=== PATIENT | female | born 1950 | race Caucasian/White ===

== ENCOUNTER → 2016-09-15 | Outpatient (CLI) | payer MEDICARE, OTHER | LOC: GMAH 12:43 | PROVIDERS: ATTEND Family Medicine | DX: N39.0 Urinary tract infection, site not specified (principal) ==

== ENCOUNTER 2016-10-11 05:52 | Day surgery (SDC) | payer MEDICARE, OTHER ==
[2016-10-11] MEDS ORDERED: LACTATED RINGERS 1,000 ML ONE (06:07)
--- NOTE | 2016-10-11 09:18 | OP ---
DATE OF PROCEDURE: date PREOPERATIVE DIAGNOSIS: 1. History of colonic polyps, last colonoscopy in 2011. POSTOPERATIVE DIAGNOSIS: 1. Small transverse colon polyp, status post snare polypectomy. 2. Large internal hemorrhoids. PROCEDURE: 1. Colonoscopy with polypectomy. SURGEON: David Salcedo MD. SEDATION: Monitored anesthesia care. ESTIMATED BLOOD LOSS: Less than 5 mL. PROCEDURE: Informed consent was obtained prior to sedation. The preprocedure cardiopulmonary assessment was satisfactory. The patient was brought to the Endoscopy Suite and placed in the left lateral decubitus position. She was then sedated by the anesthesia team. The tip of the Olympus colonoscope was inserted into the rectum and advanced under direct visualization to the terminal ileum. The cecum was identified by the presence of the appendiceal orifice and ileocecal valve. Upon reaching the terminal ileum, the endoscope was slowly withdrawn from the colon with careful attention to the lining of the colon in order to locate small polyps or flat lesions. The preparation of the colon was good. In the transverse colon, there was a small, roughly 5 mm, sessile polyp. This was resected completely and retrieved with a cold snare. The endoscope was advanced into the rectum where a retroflexed view showed large , non-bleeding internal hemorrhoids. The endoscope was then withdrawn from the patient and the procedure terminated. RECOMMENDATION: 1. Discharge the patient home with escort. 2. Followup pathology results. 3. Repeat colonoscopy in five years for polyp surveillance. 4. Resume home medications. 5. Resume regular diet. 6. Return to GI office as needed. #[id number] [facility]
[2016-10-11] MEDS ORDERED: [UNRECOGNIZED DRUG - OTHER] PR ONE (11:00)
[2016-10-11] MEDS ORDERED: LIDOCAINE 1% 10 ML VIAL INJ ONE (11:00)
[2016-10-11] MEDS ORDERED: PROPOFOL 200 MG/20 ML VIAL IV ONE (11:00)
[2016-10-11 13:05] VITALS: O2SAT 96
[2016-10-11 13:10] VITALS: BP 109/73; TEMP 97.9
== END 2016-10-11 08:50 | disposition home or self-care (01) ==
LOC: AMB 05:52
PROVIDERS: ATTEND Internal Medicine Gastroenterology
DX: Z12.11 Encounter for screening for malignant neoplasm of colon (principal); D12.3 Benign neoplasm of transverse colon; K64.8 Other hemorrhoids; Z86.010 Personal history of colon polyps; Z87.891 Personal history of nicotine dependence
CPT/HCPCS: 00810; 45385; 88305; J3490; J7120

== ENCOUNTER → 2017-01-16 | Outpatient (CLI) | payer MEDICARE, OTHER | END | disposition home or self-care (01) | LOC: GMA 16:52 | PROVIDERS: ATTEND Nurse Practitioner Family | DX: N39.0 Urinary tract infection, site not specified (principal) ==

== ENCOUNTER → 2017-03-28 | Outpatient (CLI) | payer MEDICARE, OTHER | END | disposition home or self-care (01) | LOC: GMAH 10:02 | DX: N39.0 Urinary tract infection, site not specified (principal); R53.82 Chronic fatigue, unspecified; E55.9 Vitamin D deficiency, unspecified ==

== ENCOUNTER → 2017-09-07 | Outpatient (CLI) | payer MEDICARE, OTHER | END | disposition home or self-care (01) | LOC: GMAH 12:36 | PROVIDERS: ATTEND Family Medicine | DX: N39.0 Urinary tract infection, site not specified (principal) ==

== ENCOUNTER → 2017-10-29 | Outpatient (CLI) | payer MEDICARE, OTHER | LOC: GMAJS 10:46 | PROVIDERS: ATTEND Physician Assistant | DX: N39.0 Urinary tract infection, site not specified (principal) ==

== ENCOUNTER → 2017-12-13 | Outpatient (CLI) | payer MEDICARE, OTHER | LOC: GMAH 10:40 | PROVIDERS: ATTEND Family Medicine | DX: R21 Rash and other nonspecific skin eruption (principal) ==

== ENCOUNTER → 2017-12-20 | Outpatient (CLI) | payer MEDICARE, OTHER | LOC: LAB.O 10:58 | PROVIDERS: ATTEND Family Medicine | DX: R79.9 Abnormal finding of blood chemistry, unspecified (principal); R53.82 Chronic fatigue, unspecified; R21 Rash and other nonspecific skin eruption; M35.00 Sjogren syndrome, unspecified ==

== ENCOUNTER → 2018-03-26 | Outpatient (CLI) | payer MEDICARE, OTHER | LOC: GMAH 10:45 | PROVIDERS: ATTEND Family Medicine | DX: R53.82 Chronic fatigue, unspecified (principal); R79.9 Abnormal finding of blood chemistry, unspecified; R21 Rash and other nonspecific skin eruption; M35.00 Sjogren syndrome, unspecified ==

== ENCOUNTER → 2019-01-28 | Outpatient (CLI) | payer MEDICARE, OTHER ==
--- NOTE | 2019-01-28 17:15 | US ---
EXAM DESCRIPTION: Venous,Upper Extremity RT: ULTRASOUND. CLINICAL HISTORY: PAIN IN UPPER RIGHT ARM COMPARISON: None Available. TECHNIQUE: Two -dimensional and doppler sonographic evaluation of the deep venous system of the right upper extremity. FINDINGS: Doppler evaluation shows normal color flow and normal phasicity and augmentation of the right subclavian, jugular, axillary, basilic, cephalic, brachial, radial vein and ulnar veins. The right upper extremity deep veins showed normal occlusion with transducer pressure. Two-dimensional survey showed no echogenic thrombus within these veins. IMPRESSION: Duplex ultrasound evaluation of the right upper extremity deep venous system showing no deep venous thrombosis . No distinct cyst or dominant solid mass abutting these vessels. Electronically signed by: Nhan Jimenez MD 01/28/2019 5:13 PM CDT
== END ==
LOC: US 08:00
PROVIDERS: ATTEND Family Medicine
DX: M79.621 Pain in right upper arm (principal)

== ENCOUNTER → 2019-03-06 | Outpatient (CLI) | payer MEDICARE, OTHER ==
--- NOTE | 2019-03-10 08:08 | US ---
EXAM DESCRIPTION: Breast,Right: Ultrasound CLINICAL HISTORY: 68 yearsFemaleHX BREAST CANCER . Palpable region near the breast cancer scar. Breast cancer right 2015. Lumpectomy and radiation. No remote family history of breast cancer. Childbirth. Postmenopausal Lifetime risk of developing breast cancer (Tyrer-Cuzick model)(%): Not calculated due to personal history of breast cancer. COMPARISON: Mammograms performed since breast cancer at another imaging facility not available for comparison. TECHNIQUE: Transcutaneous scanning of the right breast utilizing -scale modes. Scanning performed by the doctor of radiology and Dr. Jimenez. FINDINGS: Ultrasound: Scanning in the region of the scar from previous breast cancer treatment near the 8:00 position, 8 cm from the nipple. Heterogeneous fatty and fibroglandular tissues are seen. No dominant solid mass or distinct cyst. No parenchymal edema or large calcifications. IMPRESSION: BI-RADS CATEGORY: 0 - INCOMPLETE- Need additional imaging evaluation. FOLLOW-UP: Recall for additional imaging: Diagnostic digital right breast mammography.. Written communication explaining the IMPRESSION and follow-up, will be mailed to the patient and referring health care provider. The FINDINGS and the FOLLOW-UP plan were reviewed in person with the patient after the examination. Electronically signed by: Nhan Jimenez MD 03/10/2019 8:06 AM CDT
== END ==
LOC: MAMMO 09:47
PROVIDERS: ATTEND Physician Assistant
DX: N63.10 Unspecified lump in the right breast, unspecified quadrant (principal)

== ENCOUNTER → 2019-06-25 | Outpatient (CLI) | payer MEDICARE, OTHER | LOC: GMA MATASK 11:38 | PROVIDERS: ATTEND Family Medicine | DX: R03.0 Elevated blood-pressure reading, without diagnosis of hypertension (principal); R79.9 Abnormal finding of blood chemistry, unspecified; Z79.899 Other long term (current) drug therapy ==

== ENCOUNTER → 2019-08-27 | Outpatient (CLI) | payer MEDICARE, OTHER ==
--- NOTE | 2019-08-27 09:54 | CT ---
EXAM DESCRIPTION: CTA Chest CLINICAL HISTORY: 69 years Female, PE COMPARISON: CT chest dated 11/22/2015. TECHNIQUE: Contiguous thin section axial images through the chest were obtained after the administration of intravenous contrast. MIPS, Sagittal and coronal reconstructions were reviewed. FINDINGS: Visualized thyroid gland appears normal. Enlarged left supraclavicular lymph node measuring up to 2.6 cm are noted. Multiple mediastinal lymph nodes measuring up to 2.3 cm are also noted. No abnormally enlarged bilateral hilar or axillary lymphadenopathy.. Trachea is midline and the central tracheobronchial tree is patent. Emphysema. Patchy airspace opacities in the right upper lobe could represent pneumonia and/or atelectasis. No evidence of pleural effusions. The heart is normal in size with no pericardial effusion. The visualized aorta is nonaneurysmal with moderate atherosclerosis. The superior vena cava is normal in size and caliber.No significant coronary artery atherosclerosis. No central or major vessel pulmonary embolus. Thickening of the distal esophagus could be secondary to reflux. A simple cyst is noted in the left hepatic lobe. A simple cyst is also identified in the right kidney. The visualized upper abdomen otherwise appears normal. Mild degenerative changes are identified throughout the visualized spine. IMPRESSION: 1. No central or major vessel pulmonary embolus. 2. Multiple enlarged mediastinal and left supraclavicular lymph nodes are identified the largest measuring 2.6 cm. 3. Patchy airspace opacities in the right upper lobe could represent atelectasis and/or pneumonia. This exam was performed according to our departmental dose-optimization program, which includes automated exposure control, adjustment of the mA and/or kV according to patient size and/or use of iterative reconstruction technique. Electronically signed by: Kesha Boyer MD 08/27/2019 9:53 AM [employer] T[employer] TECHNICIAN
--- NOTE | 2019-08-28 12:26 | US ---
EXAM DESCRIPTION: Venous,Upper Extremity RT: ULTRASOUND. CLINICAL HISTORY: RULE OUT DVT COMPARISON: None Available. TECHNIQUE: Two -dimensional and doppler sonographic evaluation of the deep venous system of the right upper extremity. FINDINGS: Doppler evaluation shows normal color flow and normal phasicity and augmentation of the right subclavian, jugular, axillary, basilic, brachial, radial vein and ulnar vein. Right cephalic vein was not seen. The right upper extremity deep veins showed normal occlusion with transducer pressure. Two-dimensional survey showed no echogenic thrombus within these veins. IMPRESSION: Duplex ultrasound evaluation of the right upper extremity deep venous system showing no thrombosis. Right cephalic vein was not seen . Electronically signed by: Nhan Jimenez MD 08/28/2019 12:25 PM [employer]
== END ==
LOC: CT 08:13
PROVIDERS: ATTEND Nurse Practitioner Family
DX: R22.31 Localized swelling, mass and lump, right upper limb (principal); R59.9 Enlarged lymph nodes, unspecified; R91.8 Other nonspecific abnormal finding of lung field

== ENCOUNTER 2019-09-12 05:38 | Day surgery (SDC) | payer MEDICARE, OTHER ==
[2019-09-12] MEDS ORDERED: BUPIVACAINE 0.5% W/EPI 30 ML VIAL INJ ONE ×2 (07:18→10:58)
[2019-09-12] MEDS ORDERED: LACTATED RINGERS 1,000 ML ONE (08:44)
[2019-09-12] MEDS ORDERED: LIDOCAINE 1% 10 ML VIAL INJ ONE (10:00)
[2019-09-12] MEDS ORDERED: PROPOFOL 200 MG/20 ML VIAL IV ONE (10:00)
[2019-09-12] MEDS ORDERED: SODIUM CHLORIDE 0.9% 50 ML VIAL INJ ONE (10:00)
[2019-09-12] MEDS ORDERED: MIDAZOLAM INJ 2 MG/2 ML VIAL ONE (10:52)
[2019-09-12] MEDS ORDERED: KETAMINE HCL 100 MG/ML VIAL ONE (10:52)
[2019-09-12] MEDS ORDERED: DEXMEDETOMIDINE HCL 200 MCG/2 ML INJ IV ONE (11:11)
[2019-09-12] MEDS ORDERED: fentaNYL CITRATE INJ 50 MCG/ML AMP ONE (11:21)
[2019-09-18 02:55] VITALS: BP 131/65; TEMP 97.1; O2SAT 96
--- NOTE | 2019-10-08 14:52 | OP ---
DATE OF PROCEDURE: 09/12/19 PREOPERATIVE DIAGNOSIS: 1. Supraclavicular adenopathy. POSTOPERATIVE DIAGNOSIS: 1. Supraclavicular adenopathy. PROCEDURE: 1. Excision of deep supraclavicular lymph nodes, right side times 2. SURGEON: Tripp Renteria MD. ANESTHESIA: General and local. FINDINGS: Preoperative evaluation of the CAT scan showed the left supraclavicular node was quite deep, actually around the aortic arch and could not be palpated in the supraclavicular area. There was a suggestion of a node in the lateral cervical spine there, but on the right side, I could palpate nodes, so that is where we decided to go. COMPLICATIONS: None. SPECIMEN: Supraclavicular node. INDICATION: As stated. PROCEDURE: General anesthesia was induced. She was prepped and draped in sterile fashion. A transverse incision was made over the supraclavicular fossa. Subcutaneous tissues were taken down. The nodes were not as obvious as initially felt, but upon a deeper dissection, no evidence of significant neurovascular structures were encountered. Two small nodes were palpated, very hard and irregular. These were excised completely. There was no evidence of hepatic chain and no significant bleeding. The wound was then closed in two layers. Dressing was applied. She was awakened and taken to Recovery to be discharged. [id number]
== END 2019-09-12 12:40 | disposition home or self-care (01) ==
LOC: AMB 05:38
PROVIDERS: ATTEND Surgery
DX: C96.9 Malignant neoplasm of lymphoid, hematopoietic and related tissue, unspecified (principal); K21.9 Gastro-esophageal reflux disease without esophagitis; Z85.3 Personal history of malignant neoplasm of breast; Z88.2 Allergy status to sulfonamides; Z79.899 Other long term (current) drug therapy
CPT/HCPCS: 00320; 38500; 88305; 88321; 88341; 88342; A4216; J2250; J3010; J3490; J7120

== ENCOUNTER 2019-09-26 06:00 | Day surgery (SDC) | payer MEDICARE, OTHER ==
[2019-09-26] MEDS ORDERED: LIDOCAINE 1% 10 ML VIAL INJ ONE (07:00)
[2019-09-26] MEDS ORDERED: PROPOFOL 200 MG/20 ML VIAL IV ONE (07:00)
[2019-09-26] MEDS ORDERED: ceFAZolin SODIUM 1 GM VIAL ONE (07:00)
[2019-09-26] MEDS ORDERED: LACTATED RINGERS 1,000 ML ONE (07:19)
[2019-09-26] MEDS ORDERED: BUPIVACAINE 0.5% W/EPI 30 ML VIAL INJ ONE (08:16)
[2019-09-26] MEDS ORDERED: HEPARIN SODIUM 100 U/ML 5 ML SYG IV ONE (08:17)
[2019-09-26] MEDS ORDERED: SODIUM CHLORIDE 0.9% 50 ML VIAL ONE (08:17)
[2019-09-26] MEDS ORDERED: KETAMINE HCL 100 MG/ML VIAL ONE (10:31)
[2019-09-26] MEDS ORDERED: fentaNYL CITRATE INJ 50 MCG/ML AMP ONE (10:32)
[2019-09-26] MEDS ORDERED: MIDAZOLAM INJ 2 MG/2 ML VIAL ONE (10:32)
[2019-09-26] MEDS ORDERED: ceFAZolin SODIUM 1 GM VIAL IVPB ONE (11:03)
--- NOTE | 2019-09-26 12:02 | OP ---
DATE OF PROCEDURE: 09/26/19 PREOPERATIVE DIAGNOSIS: 1. Lymphadenopathy, supraclavicular with carcinoma. 2. History of breast cancer, metastatic. POSTOPERATIVE DIAGNOSIS: 1. Lymphadenopathy, supraclavicular with carcinoma. 2. History of breast cancer, metastatic. PROCEDURE: 1. Placement of power port Port-A-Cath. 2. Ultrasound guidance for placement of intravenous catheter. 3. Intraoperative fluoroscopy with interpretation, 1 minute. SURGEON: Tripp Renteria MD. ANESTHESIA: General and local. FINDINGS: There was excellent position and function of the catheter. INDICATION: As stated. PROCEDURE: General anesthesia was induced. She was prepped and draped in sterile fashion. Site-Rite ultrasound was used to identify the dominant jugular vein. A single stick was necessary to return to dark blood. The wire was then introduced. Fluoroscopy confirmed proper position of the wire in the right side of the heart. The chest site was then prepared. A cut was made lateral to the wire, undermined to allow for curvature of the catheter. The introducer dilator was placed and removed. The catheter was then threaded over the wire after having been trimmed to 30 cm. Once it is was in 15 cm, we took fluoroscopy, withdrew it to 13 cm and the tip was in proper position. We then removed the wire and flushed the catheter, attached the catheter to the tunneler and brought it down to the chest site which had been prepared. It was then trimmed, mated to the port and locked, put in the pocket. It was secured with a single stitch of 2-0 Prolene medially. There was excellent return and good flush. We then flushed with heparinized saline solution final film showed good curvature of the neck and good position of the tip. The wounds were closed in 2 layers of absorbable sutures and dressings applied. She tolerated the procedure and was taken to Recovery to be discharged. #[id number] cc: Orville Warner MD [facility]
[2019-09-26 12:04] VITALS: BP 132/72; TEMP 98.2; O2SAT 96
--- NOTE | 2019-09-27 20:21 | RAD ---
EXAM DESCRIPTION: Fluoroscopy Up to 1Hr CLINICAL HISTORY: 69 years Female, PORT PLACEMENT COMPARISON: None. IMPRESSION: Multiple intraoperative fluoroscopic images saved for the benefit of the surgeon. Placement of right chest wall port with its right IJ catheter in place directed inferiorly. The tip of the catheter is not well demonstrated and follow-up with chest radiograph may be obtained for confirmation of tip placement. Please see procedure report for full details. Fluoroscopy time: 26.7 seconds Fluoroscopic images: 2 Total DAP: 4.58 mGy-m2 Electronically signed by: Freddy Coppola MD 09/27/2019 8:20 PM [facility]
== END 2019-09-26 12:10 | disposition home or self-care (01) ==
LOC: AMB 06:00
PROVIDERS: ATTEND Surgery
DX: C50.919 Malignant neoplasm of unspecified site of unspecified female breast (principal); R59.0 Localized enlarged lymph nodes; Z88.2 Allergy status to sulfonamides; Z79.899 Other long term (current) drug therapy
CPT/HCPCS: 00532; 36558; 36561; 76000; A4216; C1788; J0690; J1642; J2250; J3010; J3490; J7120

== ENCOUNTER → 2020-05-27 | Outpatient (CLI) | payer MEDICARE, OTHER ==
--- NOTE | 2020-05-28 10:13 | MRI ---
EXAM DESCRIPTION: Brain w/wo Contrast: Magnetic Resonance Imaging. CLINICAL HISTORY: 70 years Female MALIGNANT NEOPLASM OF LOWER OUTER QUADRANT OF FEMALE BREAST COMPARISON: MRI scan of the cervical spine and lumbar spine on the same visit. TECHNIQUE: Multiplanar, high-field MRI, multiple conventional sequences, without and with gadolinium IV contrast. No adverse reactions. Multiple axial diffusion sequences. Resolution on several sequences is decreased due to patient motion. FINDINGS: Small hyperintense foci of bright FLAIR and T2-weighted signal in the .Bilateral frontal lobe subcortical white matter. No abnormal contrast enhancement. No hemorrhage, no cerebral edema, no mass-effect. Single focus of hyperintense FLAIR signal in the anterior left basal ganglia. Normal signal in the right basal ganglia. No hemorrhage, no cerebral edema, no mass-effect. Normal contrast enhancement. Normal signal in the brainstem and cerebellar hemispheres. Normal contrast enhancement. Concordance of the diffusion and non-diffusion sequences with no evidence of acute or subacute infarction. Cortical sulci, ventricles, and other CSF spaces, and the subdural spaces are slightly more prominent in the frontal lobes bilaterally for patient's age. No effacement or displacement. No midline shift. No extra-axial hemorrhage. Normal contrast enhancement. Normal flow signal void in the major vessels of the point [place] ira Alexander, and the venous sinuses. Prominent intracranial segment distal left ICA. IACs are symmetric bilaterally. Normal signal bilateral mastoid air cells. No mass effect in the bilateral Cerebellopontine angles. Normal contrast enhancement. Pituitary gland occupies most of the sella. Normal contrast enhancement. Base of the cerebellar tonsils is at the level of the foramen magnum. Minimal mucoperiosteal thickening in the paranasal sinuses. The bony calvarium is intact. IMPRESSION: 1. No masses or mass effect. No abnormal enhancement. No intra-axial hemorrhage or midline shift. No extra-axial hemorrhage or fluid collection. No abnormal extra-axial enhancement. 2. Normal noncontrast MRI diffusion scan with no evidence of acute or subacute infarction. Minimal chronic sinusitis. Electronically signed by: Nhan Jimenez MD 05/28/2020 10:11 AM CDT
--- NOTE | 2020-05-28 10:26 | MRI ---
EXAM DESCRIPTION: Cervical Spine w/wo Contrast: MRI. CLINICAL HISTORY: 70 years Female MALIGNANT NEOPLASM OF LOWER OUTER QUADRANT OF FEMALE BREAST COMPARISON: MRI scan cervical spine without contrast October 2014. TECHNIQUE: Multiplanar, high-field MRI, multiple sequences, non-contrast Cervical spine. Decreased resolution on some sequences due to patient motion. FINDINGS: C2-C3: Disc space maintained with normal signal in the disc. Bilateral neural foramina and canal are patent. Stable since the prior study. C3-C4: Disc space maintained with normal signal in the disc. Bilateral small uncinate spurs and bilateral neural foraminal narrowing. Minimal hypertrophy of the bilateral facet joints. No posterior bulging with canal patent. C4-C5: Disc space preserved with disc desiccation with anterior and posterior bulging. Bilateral uncinate spurs. Posterior disc and spurs are abutting the cervical spine. Bilateral facet joint arthrosis with mild hypertrophy on the left. Moderate left neural foraminal narrowing and mild right neural foraminal stenosis. Mild canal narrowing. Canal and foraminal narrowing is progressed since the prior study. C5-C6: Disc space preserved with disc desiccation. Posterior broad-based bulge abutting the cord. Minimal anterior bulging and spur endplate ridging. Bilateral uncinate spurs larger on the right. Right neural foraminal stenosis and mild to moderate left neural foraminal narrowing. Mild canal narrowing. This is progressed since the prior study. C6-C7: Disc desiccation and minimal disc space loss. Anterior bulging. Posterior disc osteophyte bulge abutting the cord. Bilateral uncinate spurs larger on the right. Mild canal narrowing. Borderline right neural foraminal stenosis. Mild to moderate left neural foraminal narrowing. Stable since the prior study. Normal signal in the remaining discs with no bulging. Disc spaces preserved. Trace anterolisthesis T1-T2. Canal and neural foramina are patent. Facet joints show minimal arthrosis. Spinal alignment reduced cervical lordosis.. No cord compression or cord edema. Atlantoaxial joint unremarkable.. Base of the cerebellar tonsils is at the level of the foramen magnum. Paravertebral soft tissues unremarkable. Vertebral bodies are not compressed at any level. Otherwise marrow signal in the remaining vertebral bodies and the posterior elements. IMPRESSION: 1. No abnormal marrow edema or destructive lesions in the bony spine. No mass effect on the cord or enlargement of the cord. Multiple levels of spondylosis and disc desiccation. 2. Mild right neural foraminal stenosis at C4-C5. This has progressed since the prior study. 3. Right neural foraminal stenosis C5-C6. This is progressed since the prior study. 4. Please refer to FINDINGS for discussion of additional results at other disc spaces. 4. Borderline right neural foraminal stenosis at C6-C7. Electronically signed by: Nhan Jimenez MD 05/28/2020 10:25 AM CDT
--- NOTE | 2020-05-28 12:26 | MRI ---
EXAM DESCRIPTION: Lumbar Spine w/wo Contrast: Magnetic Resonance Imaging. CLINICAL HISTORY: MALIGNANT NEOPLASM OF LOWER OUTER QUADRANT OF FEMALE BREAST COMPARISON: Radiographs of the lumbar spine on May 14. TECHNIQUE: Multiplanar, MRI, multiple standard sequences, without and with 1 mL per 5 kg body weight, Dotarem Gadolinium IV contrast, lumbar spine. No adverse reactions. Some images are degraded due to patient motion. FINDINGS: L5-S1: L5-S1 disc space is well identified on T2 axial series 501, image 3. Minimal disc desiccation with disc space preserved. 2 mm grade 1 anterolisthesis. Hypertrophic changes in the flavum ligaments and facet joints (canal elements). No canal narrowing. Bilateral foramina are patent. T12-L1 disc space maintained with disc desiccation. Anterior bulging. Posterior midline 5 mm protrusion of the disc abutting the left subarticular recess and the left L1 nerve. Minimal enhancement of the disc. This is not encroaching on the conus which terminates at this level. Bilateral foramina are patent. Minimal thickening of the posterior flavum ligaments. L4-L5: Disc desiccation and minimal disc space loss. Moderate endplate reactive changes to the right of midline with Schmorl's nodes. Minimal posterior broad-based disc bulge. Minimal disc osteophyte bulge into the right foramen abutting the exiting right L4 nerve. Mild hypertrophic changes in the canal elements. Minimal edema and enhancement posterior to the facet joint spaces. Mild canal narrowing. Left foramen is patent. L3-L4: Disc desiccation with disc space preserved. Trace retrolisthesis. Mild hypertrophic changes in the canal elements. Minimal soft tissue edema posterior to the facet joint spaces with enhancement. Mild canal narrowing. Mild left foraminal narrowing with right foramen patent. L2-L3: Disc desiccation and minimal disc space loss. Trace retrolisthesis. Minimal hypertrophic changes in the canal elements. Canal is patent. Bilateral foramina are unremarkable. L1-L2: Disc desiccation with minimal anterior bulging. Trace posterior midline bulging. Canal elements unremarkable. Bilateral foramina and canal are patent. T11-T12 disc and T10-T11 disc are desiccated with minimal anterior and posterior bulging. No canal or foraminal stenosis or cord impingement. Minimal lumbar levoscoliosis and minimal thoracolumbar dextroscoliosis. Included cord and conus with normal signal, size, and enhancement. Vertebral bodies are not compressed at any level. Normal marrow signal in the vertebral bodies and the posterior elements. Otherwise normal Contrast enhancement. Paravertebral soft tissues unremarkable.Perivertebral contrast enhancement negative. IMPRESSION: 1. No abnormal marrow edema. No destructive lesions. No focal extradural mass. No abnormal enhancement in the bones are soft tissues of the spine or extraspinal. 2. Herniation of the T12-L1 disc in the midline and to the left of midline abutting the left subarticular recess and the exiting left L1 nerve. 3. Multiple levels of disc desiccation and spondylolisthesis. 4. L4-L5 spondylosis more prominent in the right of midline with disc spur complex encroaching on the right foramen and abutting the right exiting L4 nerve. 5. Please refer to FINDINGS for discussion of results at other disc space levels. Electronically signed by: Nhan Jimenez MD 05/28/2020 12:25 PM CDT
== END ==
LOC: MRI 13:00
PROVIDERS: ATTEND Internal Medicine Hematology & Oncology
DX: Z01.812 Encounter for preprocedural laboratory examination (principal); C50.512 Malignant neoplasm of lower-outer quadrant of left female breast; M50.30 Other cervical disc degeneration, unspecified cervical region; M47.892 Other spondylosis, cervical region; M48.02 Spinal stenosis, cervical region; R20.0 Anesthesia of skin; J32.9 Chronic sinusitis, unspecified

== ENCOUNTER 2020-08-19 04:51 | Emergency (ER) | payer MEDICARE, OTHER ==
--- NOTE | 2020-08-19 05:27 | ED.PDOC ---
History of Present Illness - General Chief Complaint: General Stated Complaint: dizzy and weakness Time Seen by Provider: 08/19/20 05:01 Additional Information: Patient is a 70-year-old female who presents to the ED with chief complaint of possible anemia. Patient has a distant history of breast cancer and she indicates that she has been told her cancer has recurred in her lymph nodes. She is presently being treated by Dr. Ruiz, oncologist, in [place] who texted her that she is concerned that patient may have hemolytic anemia. Patient is receiving monoclonal antibody treatment which apparently is a risk factor for hemolytic anemia. Patient had routine labs done earlier in the week and was noted to be anemic with a hemoglobin of 4 and she was admitted at [facility] and transfused with 3 units of blood. Patient had routine labs done following that admission and her doctor texted her and told her to follow back up again in the emergency department for concern for recurrent anemia and possible hemolytic anemia. Patient received that text message last night and went to bed and she woke this morning feeling slightly weak and dizzy so she reported to the ED for evaluation. Patient denies nausea, vomiting, fever, chills, chest pain, shortness of breath, headache. - History of Present Illness Allergies/Adverse Reactions: Allergies Sulfa Antibiotics Allergy (Unknown, Verified 05/15/20 13:45) Home Medications: Ambulatory Orders Calcium 500 mg PO BID 03/29/15 Ascorbic Acid [Vitamin C] 500 mg PO DAILY 10/06/16 Cholecalciferol [Vitamin D] 400 iu PO DAILY 10/06/16 Ambien 1 tablet PO BEDTIME 09/11/19 [place]-3 Fatty Acids [Fish Oil] 1 cap PO DAILY 09/11/19 Methocarbamol [Robaxin] 1 tablet PO Q6H PRN #20 tab 05/15/20 Tramadol HCl 50 - 100 mg PO Q24HR PRN #20 tab 05/15/20 Prednisone 80 mg PO DAILY #28 tab 08/19/20 Review of Systems - Review of Systems Constitutional: States: weakness. Denies: chills, fever EENTM: States: no symptoms reported Respiratory: States: no symptoms reported. Denies: cough, short of breath Cardiology: States: no symptoms reported. Denies: chest pain, palpitations Gastrointestinal/Abdominal: States: no symptoms reported. Denies: abdominal pain, diarrhea, nausea, vomiting Genitourinary: States: no symptoms reported. Denies: dysuria Musculoskeletal: Denies: muscle pain Skin: Denies: rash Neurological: States: see HPI Hematologic/Lymphatic: States: see HPI All other Systems: Reviewed and Negative Past Medical History (General) - Patient Medical History Hx Stroke: No Hx of COPD: No Hx Cardiac Disorders: No Hx Congestive Heart Failure: No Hx Hypertension: No Hx Diabetes: No Hx Cancer: Yes - Breast and Lymph nodes Hx MRSA: No - Vaccination History Hx Influenza Vaccination: No Hx Pneumococcal Vaccination: No - Social History Hx Tobacco Use: Yes Hx Alcohol Use: No Hx Substance Use: No Hx Depression: No - Female History Patient : No Family Medical History - Family History Mother Family History: Unknown Physical Exam - Physical Exam General Appearance: Alert, Comfortable, No apparent distress, Well Developed, Well Nourished Ears, Nose, Throat: normal ENT inspection Neck: supple, normal inspection Respiratory: chest non-tender, lungs clear, normal breath sounds, no respiratory distress, no accessory muscle use Cardiovascular/Chest: normal peripheral pulses, regular rate, rhythm, no edema, no gallop, no JVD, no murmur Peripheral Pulses: radial,right: 2+, radial,left: 2+ Gastrointestinal/Abdominal: normal bowel sounds, non tender, soft Extremity: normal inspection, no pedal edema Neurologic: rating officer II-XII nml as tested, no motor/sensory deficits, alert, normal mood/affect, oriented x 3 Skin Exam: normal color, warm/dry Progress - Progress Progress: 08/19/20 05:28 Differential diagnosis includes but is not limited to hemolytic anemia, laboratory error, electrolyte disorder, anemia of chronic disease 08/19/20 06:37 Patient reassessed. Her H/H is 8.1 and 23.3. I have spoken with her oncologist, Dr. Ruiz, on the telephone and she indicates that patient does not have hemolytic anemia and does not require transfusion but she does request that I prescribe prednisone 1 mg/kg daily for the next week and have patient follow in her office in 1 week. Vital signs stable, patient is NAD and looks clinically well and I believe is safe for discharge with outpatient follow-up. Follow-up instructions, discharge instructions and return to ED precautions discussed with patient. Patient voices understanding and willingness to comply with instructions. All laboratory and/or radiographic results have been discussed with the patient, and all questions answered. Patient is happy with plan. Departure - Departure Clinical Impression: Anemia, unspecified Qualifiers: Anemia type: unspecified type Qualified Code(s): D64.9 - Anemia, unspecified Lymphoma Qualifiers: Lymphoma type: unspecified type Lymphoma site: unspecified region Qualified Code(s): C85.90 - Non-Hodgkin lymphoma, unspecified, unspecified site Time of Disposition: 06:43 Disposition: Discharge to Home or Self Care Condition: Good Departure Forms: ED Discharge - Pt. Copy, Patient Portal Self Enrollment Instructions: Autoimmune Hemolytic Anemia Prescriptions: Prednisone 80 mg PO DAILY #28 tab Home Medications: Ambulatory Orders Calcium 500 mg PO BID 03/29/15 Ascorbic Acid [Vitamin C] 500 mg PO DAILY 10/06/16 Cholecalciferol [Vitamin D] 400 iu PO DAILY 10/06/16 Ambien 1 tablet PO BEDTIME 09/11/19 [place]-3 Fatty Acids [Fish Oil] 1 cap PO DAILY 09/11/19 Methocarbamol [Robaxin] 1 tablet PO Q6H PRN #20 tab 05/15/20 Tramadol HCl 50 - 100 mg PO Q24HR PRN #20 tab 05/15/20 Prednisone 80 mg PO DAILY #28 tab 08/19/20
--- NOTE | 2020-08-19 05:35 | RAD ---
EXAM: XR Chest, 1 View CLINICAL HISTORY: The patient is 70 years old and is Female; weak TECHNIQUE: Single upright portable view of the chest. COMPARISON: March 31, 2015. FINDINGS: Lungs: Unremarkable. No consolidation. Pleural space: Unremarkable. No pneumothorax. Heart: Unremarkable. No cardiomegaly. Mediastinum: Unremarkable. Bones/joints: No acute rib fracture identified. Soft tissues: Right axillary surgical clips. Tubes, lines and devices: Right-sided chest port with the catheter tip in the SVC. Upper abdomen: Elevated right hemidiaphragm. No free air in the visualized upper abdomen. IMPRESSION: No acute cardiopulmonary process identified. Electronically signed by: Molly Harper MD 08/19/2020 5:33 AM [employer]ING [employer]INEER
[2020-08-19] MEDS ORDERED: predniSONE 10 MG TAB PO ONE (06:46)
[2020-08-19] MEDS ORDERED: predniSONE 20 MG TAB ONE (06:51)
[2020-08-19] MEDS ORDERED: HEPARIN SODIUM 100 U/ML 5 ML SYG IV ONE (06:52)
[2020-08-19 07:06] VITALS: BP 154/87; TEMP 97.8; O2SAT 97
== END 2020-08-19 06:55 | disposition home or self-care (01) ==
LOC: ER 04:51
DX: C85.90 Non-Hodgkin lymphoma, unspecified, unspecified site (principal); D63.0 Anemia in neoplastic disease; Z85.3 Personal history of malignant neoplasm of breast; Z87.891 Personal history of nicotine dependence; Z79.899 Other long term (current) drug therapy; Z88.2 Allergy status to sulfonamides
CPT/HCPCS: 36415; 71045; 80053; 83605; 84484; 85025; 93005; J1642; J7512

== ENCOUNTER → 2020-10-19 | Outpatient (CLI) | payer MEDICARE, OTHER ==
--- NOTE | 2020-10-19 19:33 | US ---
EXAM DESCRIPTION: Chest: ULTRASOUND. 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 Palpable mass right anterior proximal chest. Same site as lymph node resection one year ago. COMPARISON: None Available. TECHNIQUE: Transcutaneous scanning: Quiroz-scale and Doppler modes. FINDINGS: The site of palpation, there is a partially circumscribed mass measuring 2.5 cm long axis parallel to the skin surface. 2.2 x 1.3 cm in the orthogonal plane. Posterior mixed acoustic enhancement and shadowing. The more hypoechoic spherical region of the mass demonstrates more acoustic enhancement and is also more vascular than the outer aspect of the mass. This more vascular region measures 10 x 9 mm. No fluid collection, no cyst, and no calcification. IMPRESSION: Vascular complex mass which is palpable superior anterior chest with long axis parallel to the skin measuring 2.5 cm. Concern for reactive lymph node or recurrent malignant tumor. This mass would be amenable to ultrasound-guided needle core biopsy. Also consider PET/CT scan if biopsy positive for malignancy. Electronically signed by: Nhan Jimenez MD 10/19/2020 7:[address] [facility]
== END ==
LOC: US 08:47
PROVIDERS: ATTEND Internal Medicine Hematology & Oncology
DX: C50.512 Malignant neoplasm of lower-outer quadrant of left female breast (principal)